=== PATIENT | female | born 2000 | race African-American/Black ===

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

== ENCOUNTER 2021-03-12 15:04 | Emergency (ER) | payer BC, OTHER, SELFPAY ==
--- NOTE | 2021-03-12 16:10 | HMH.EDUTC ---
[facility] [place] Clinical Impression: Exposure to COVID-19 virus Disposition: Home, Self-Care Condition on Discharge: Good Instructions: DI for COVID-19 (Suspected or Confirmed ), Preventing the Spread of Coronavirus Discharge Instructions Additional Instructions: Drink plenty of fluids. Take tylenol for pain or fever. Return if you begin to have difficulty breathing. Follow up with your regular doctor. GO TO THE ER FOR ANY WORSENING SYMPTOMS Quarantine until you know the results of your covid-19 test. If it is positive, the health department should call you and give you further instructions about your length of Quarantine and other things. Notify your school or workplace of your results and follow their instructions regarding return to work/school. Referrals: Consuelo Messina APRN [Primary Care Provider] - Forms: Work/School Release Time of Disposition: 16:13 Medical Decision Making - Medical Records Medical records reviewed: No: I reviewed the patient's medical records. - Stan Inquiry Pt receiving controlled substance: No Vital Signs: 03/12/21 16:13 03/12/21 16:17 Temperature 97.9 F 97.9 F Temperature Source Oral Pulse Rate 74 Pulse Rate [Left] 74 Respiratory Rate 18 18 Blood Pressure 120/73 Blood Pressure [Right Arm] 120/73 Blood Pressure Mean [Right Arm] 88 02 Sat by Pulse Oximetry 100 [facility] [place] - General Stated complaint: covid test Time Seen by Provider: 03/12/21 16:10 - History of Present Illness Provider Complaint: She was exposed to covid-19 3 days ago. She states that she needs a test for her work. She denies any symptoms so far. - Related Data Home Medications Medication Instructions Recorded Confirmed No Known Home Medications 12/04/20 12/04/20 Allergies Allergy/AdvReac Type Severity Reaction Status Date / Time No Known Allergies Allergy Verified 12/04/20 13:12 [facility] [place] History - Hepatitis A Screen Attestation statement:: This patient has been screened for Hepatitis A risk factors. I have reviewed the patient's past medical history: Yes Medical History: Denies:: Cancer, Diabetes Mellitus Type 1, Diabetes Mellitus Type 2, Internal Pacemaker, Lung Disease, MRSA, Seizures Other Medical History: Denies: Blood Transfusion Reaction Laterality Cases: Left: Arthroscopy Knee Other Surgeries: Yes: No Previous Surgery, Other (Left ACL repair). No: Pacemaker Amputation: No Fractures: No Comment: left knee surgery for repair of meniscus & ACL - Social History Smoking Status: Never smoker Alcohol Intake: never Substance Use Type: denies use Occupational Status: unemployed, student Housing: house Household Members: family Comment: Vision. L . R . B Family Hx:: Cancer, Coronary Artery Disease, Diabetes, Hypertension ROS Obtained: Yes All systems reviewed & no additional complaints - Constitutional Constitutional: Reports system reviewed and no additional complaints, except as docu - Eyes Eyes: Reports system reviewed and no additional complaints, except as docu - ENT Ears, Nose, Mouth, and Throat: Reports system reviewed and no additional complaints, except as docu - Cardiovascular Cardiovascular: Reports system reviewed and no additional complaints, except as docu - Respiratory Respiratory: Reports system reviewed and no additional complaints, except as docu - Gastrointestinal Gastrointestingal: Reports: system reviewed and no additional complaints, except as docu Physical Exam - General General appearance: alert, in no apparent distress - Head Head exam: atraumatic, normocephalic, normal inspection - Eye Eye exam: Present: normal appearance, PERRL, EOMI - ENT ENT exam: Present: normal exam, normal oropharynx, mucous membranes moist, TM's normal bilaterally, normal external ear exam - Neck Neck exam: Present: normal inspection, full ROM, trachea midline. Absent: meningismus, lymphadenopathy
[2021-03-12 16:13] VITALS: BP 120/73; PULSE 74; RESP 18; TEMP 36.6; O2SAT 100; BMI 25.2
[2021-03-12 16:17] VITALS: BP 120/73; PULSE 74; RESP 18; TEMP 36.6
== END 2021-03-12 16:18 | disposition home or self-care (01) ==
PROVIDERS: Emergency Provider Nurse Practitioner Family; PCP Nurse Practitioner Family
DX: Z20.822 Contact with and (suspected) exposure to COVID-19 (principal)
CPT/HCPCS: 99202; G0463; U0003

== ENCOUNTER → 2021-07-14 16:34 | Outpatient (CLI) | payer BC, OTHER, SELFPAY | PROVIDERS: PCP Emergency Medicine; Visit Provider Nurse Practitioner | DX: U07.1 COVID-19 (principal) | CPT/HCPCS: C9803; U0003; U0005 ==

== ENCOUNTER → 2022-05-21 11:30 | Outpatient (CLI) | payer BC, SELFPAY ==
[2022-05-24 21:11] LABS: Neisseria gonorrhoeae, NAA Negative (Negative)
== END ==
PROVIDERS: Visit Provider Obstetrics & Gynecology
DX: Z30.011 Encounter for initial prescription of contraceptive pills (principal); Z11.3 Encounter for screening for infections with a predominantly sexual mode of transmission
CPT/HCPCS: 87491; 87591